=== PATIENT | female | born 1980 | race Caucasian/White ===

== ENCOUNTER 2023-09-16 10:28 | Day surgery (SDC) | payer OTHER ==
[2023-09-09 13:40] VITALS: BMI 23.3
[2023-09-16 13:02] VITALS: RESP 18; TEMP 97
[2023-09-16 13:05] VITALS: BP 108/60; PULSE 72
== END 2023-09-16 13:13 | disposition home or self-care (01) ==
LOC: FASU-ENDO 10:28
PROVIDERS: ATTEND Internal Medicine Gastroenterology
PROC: 0DBL8ZX Excision of Transverse Colon, Via Natural or Artificial Opening Endoscopic, Diagnostic (ICD-10-PCS; principal; 2023-09-16 12:17)
DX: Z12.11 Encounter for screening for malignant neoplasm of colon (principal); D12.3 Benign neoplasm of transverse colon
CPT/HCPCS: 81025; 88305-TC